=== PATIENT | male | born 1965 | race Caucasian/White ===

== ENCOUNTER 2020-02-22 13:40 | Emergency (ER) | payer OTHER ==
[~2020-02-22] VITALS: Ht 175.3 cm; Wt 92.7 kg
[2020-02-22 14:46] LABS: BASO # 0.1 10^3/uL (0.0-0.2); BASO % 0.7 % (0.0-1.0); EOS # 0.1 10^3/uL (0.0-0.5); HEMATOCRIT 48.4 % (42.0-52.0); LYMPH # 2.7 10^3/uL (1.5-5.0); LYMPH % 33.3 % (24.0-44.0); MEAN CORPUSCULAR HEMOGLOBIN 29.7 pg (27.0-33.0); MEAN CORPUSCULAR HGB CONC 33.1 g/dl (32.0-36.5); MONO # 0.5 10^3/uL (0.0-0.8); MONO % 6.4 % (0.0-5.0); NEUTROPHILS # 4.7 10^3/uL (1.5-8.5); NEUTROPHILS % 58.2 % (36.0-66.0); PLATELET COUNT, AUTOMATED 259 10^3/uL (150-450); RED BLOOD COUNT 5.38 10^6/uL (4.30-6.10); WHITE BLOOD COUNT 8.1 10^3/uL (4.0-10.0)
--- NOTE | 2020-02-22 14:54 | REP ---
INDICATION: CHEST PAIN. COMPARISON: Comparison chest x-ray is from March 24, 2014.. TECHNIQUE: Sitting portable AP chest radiograph. FINDINGS: Monitoring electrodes overlie the chest. The lungs are well inflated and clear. Heart size is normal. Pulmonary vasculature is not increased. No significant bony abnormality is seen. IMPRESSION: No active disease. <Electronically signed by Alphonse Malave > 02/22/20 [id number]
[2020-02-22 15:39] LABS: ALBUMIN 3.8 GM/DL (3.2-5.2); ALT/SGPT 45 U/L (12-78); BILIRUBIN,DIRECT 0.1 MG/DL (0.0-0.2); BILIRUBIN,TOTAL 0.3 MG/DL (0.2-1.0); BLOOD UREA NITROGEN 21 MG/DL (7-18); CALCIUM LEVEL 9.4 MG/DL (8.5-10.1); CARBON DIOXIDE LEVEL 27 MEQ/L (21-32); CHLORIDE LEVEL 108 MEQ/L (98-107); CK-MB VALUE MASS 1.8 NG/ML (<3.6); CPK CREATINE PHOSPHOKINASE 84 U/L (39-308); GLOMERULAR FILTRATION RATE > 60.0 (>56); GLUCOSE, FASTING 97 MG/DL (70-100); LIPASE 133 U/L (73-393); MB/CK RELATIVE INDEX 2.14 (< OR =4); POTASSIUM SERUM 4.5 MEQ/L (3.5-5.1); SODIUM LEVEL 139 MEQ/L (136-145); TOTAL PROTEIN 7.7 GM/DL (6.4-8.2); TROPONIN I < 0.02 NG/ML (< 0.10)
[2020-02-22 18:32] LABS: CK-MB VALUE MASS 1.6 NG/ML (<3.6); CPK CREATINE PHOSPHOKINASE 66 U/L (39-308); MB/CK RELATIVE INDEX 2.42 (< OR =4); TROPONIN I < 0.02 NG/ML (< 0.10)
[2020-02-22 19:05] VITALS: BP 155/97
--- NOTE | 2020-02-23 00:43 | ECGEPIP ---
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
--- NOTE | 2020-02-23 00:49 | ECGEPIP ---
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
== END 2020-02-22 19:10 | disposition home or self-care (01) ==
LOC: M ED 13:40
DX: R07.89 Other chest pain (principal); I44.0 Atrioventricular block, first degree; I45.10 Unspecified right bundle-branch block

== ENCOUNTER 2020-12-02 18:46 | Emergency (ER) | payer OTHER ==
[~2020-12-02] VITALS: Ht 175.3 cm; Wt 90.9 kg
[2020-12-02] MEDS ORDERED: NS 500 ML IV ONE (19:05)
[2020-12-02] MEDS ORDERED: methylPREDNISolone 125MG 2ML VIAL IV ONE (19:05)
[2020-12-02] MEDS: COMBIVENT RESPIMAT 100-20MCG INHALER 4GM INH SCH ×3 (19:25→20:45)
[2020-12-02 20:02] LABS: BASO % 0.2 % (0.0-1.0); HEMATOCRIT 44.5 % (42.0-52.0); HEMOGLOBIN 15.2 g/dl (13.5-17.5); MEAN CORPUSCULAR HEMOGLOBIN 30.7 pg (27.0-33.0); MEAN CORPUSCULAR HGB CONC 34.2 g/dl (32.0-36.5); MEAN CORPUSCULAR VOLUME 89.9 fl (80.0-96.0); MONO # 0.3 10^3/uL (0.0-0.8); MONO % 4.8 % (2.0-8.0); NEUTROPHILS # 4.7 10^3/uL (1.5-8.5); NEUTROPHILS % 78.5 % (36.0-66.0); PLATELET COUNT, AUTOMATED 180 10^3/uL (150-450); RED BLOOD COUNT 4.95 10^6/uL (4.30-6.10)
--- NOTE | 2020-12-02 20:07 | REP ---
INDICATION: ro covid. COMPARISON: 02/22/2020 also portable TECHNIQUE: Portable FINDINGS: The technique utilized in obtaining the radiograph has magnified the cardiac silhouette and attenuated the interstitial markings. The cardiomediastinal silhouette is stable. The lung olson are hypoexpanded. Bibasilar curvilinear densities have developed. The pleural angles are sharp. IMPRESSION: Bibasilar platelike subsegmental atelectatic change. <Electronically signed by Hernan Riley > 12/02/202002
[2020-12-02 20:13] LABS: INR 1.02; PROTHROMBIN TIME 13.8 SECONDS (12.7-14.5)
[2020-12-02 20:14] LABS: PARTIAL THROMBOPLASTIN TIME 39.8 SECONDS (25.9-37.0)
[2020-12-02 20:17] LABS: D-DIMER QUANT 897.41 ng/ml (<500)
[2020-12-02 20:32] LABS: ALT/SGPT 48 U/L (12-78); BILIRUBIN,TOTAL 0.5 MG/DL (0.2-1.0); BLOOD UREA NITROGEN 17 MG/DL (7-18); C REACTIVE PROTEIN QUANTITATIV 8.18 MG/DL (0.00-0.30); CALCIUM LEVEL 8.3 MG/DL (8.5-10.1); CARBON DIOXIDE LEVEL 25 MEQ/L (21-32); CHLORIDE LEVEL 105 MEQ/L (98-107); CPK CREATINE PHOSPHOKINASE 398 U/L (39-308); CREATININE FOR GFR 1.16 MG/DL (0.70-1.30); FERRITIN 811 NG/ML (26-388); GLOMERULAR FILTRATION RATE > 60.0 (>56); GLUCOSE, FASTING 124 MG/DL (70-100); LDH LACTATE DEHYDROGENASE 267 U/L (87-241); MB/CK RELATIVE INDEX 0.75 (< OR =4); POTASSIUM SERUM 3.7 MEQ/L (3.5-5.1); SODIUM LEVEL 140 MEQ/L (136-145); TOTAL PROTEIN 6.6 GM/DL (6.4-8.2); TROPONIN I < 0.02 NG/ML (< 0.10)
[2020-12-02] MEDS ORDERED: ISOVUE-370 76% 100ML VIAL As Ordered ONE (20:58)
--- NOTE | 2020-12-02 21:48 | REPVR ---
PROCEDURE INFORMATION: Exam: CTA Chest With Contrast Exam date and time: 12/02/2020 9:17 PM Age: 55 years old Clinical indication: Other: SOB, chest pain, covid pos, R/O pe TECHNIQUE: Imaging protocol: Computed tomographic angiography of the chest with contrast. 3D rendering (Not supervised by radiologist): MIP and/or 3D reconstructed images were created by the technologist. Radiation optimization: All CT scans at this facility use at least one of these dose optimization techniques: automated exposure control; mA and/or kV adjustment per patient size (includes targeted exams where dose is matched to clinical indication); or iterative reconstruction. Contrast material: ISOVUE 370; Contrast volume: 75 ml; Contrast route: INTRAVENOUS (IV); COMPARISON: CR Chest, 1 view 12/02/2020 7:15 PM FINDINGS: Pulmonary arteries: There are no pulmonary emboli. Aorta: There is no aortic dissection or aneurysm. Lungs: Bilateral solid and semi-solid pulmonary parenchymal infiltrates located predominantly peripherally extending to the pleural surfaces. Findings consistent with multifocal viral pneumonitis (organizing type) and known Covid diagnosis. Pleural spaces: Unremarkable. No pneumothorax. No pleural effusion. Heart: Unremarkable. No cardiomegaly. No pericardial effusion. Lymph nodes: Unremarkable. No enlarged lymph nodes. Bones/joints: Unremarkable. No acute fracture. Soft tissues: Unremarkable. IMPRESSION: 1. Bilateral solid and semi-solid pulmonary parenchymal infiltrates located predominantly peripherally extending to the pleural surfaces. Findings consistent with multifocal viral pneumonitis (organizing type) and known Covid diagnosis. 2. There is no aortic dissection or aneurysm. 3. There are no pulmonary emboli. Electronically signed by: Addy Jerome On 12/02/2020 21:48:22 PM
[2020-12-03 01:00] VITALS: BP 107/60
[2020-12-03] MEDS ORDERED: ACET-907 PO (02:12)
[2020-12-03] MEDS ORDERED: [UNRECOGNIZED DRUG - CODE] PO (02:12)
== END 2020-12-03 01:58 | disposition home or self-care (01) ==
LOC: M ED 18:46 → EDBD 18:46 → M ED 12-03 01:58
DX: J16.8 Pneumonia due to other specified infectious organisms (principal); U07.1 COVID-19
CPT/HCPCS: 71045; 71275; 80053; 82550; 82553; 82728; 82803; 83605; 83615; 83735; 84145; 85025; 85379; 85384; 85610; 85730; 86140; 87040; 87798; 96361; 96374; 99285; J2930; Q9967

== ENCOUNTER 2020-12-02 22:50 | Outpatient (CLI) | payer OTHER ==
[2020-12-02] MEDS ORDERED: ALBUTEROL SULFATE 2.5 MG/0.5 ML INH NEB SOLN INH PRN (23:35)
[2020-12-02] MEDS ORDERED: NS 1,000 ML IV SCH (23:35)
[2020-12-02] MEDS ORDERED: ACETAMINOPHEN TAB 650MG DOSE (2X325MG) PO PRN (23:35)
[2020-12-02] MEDS ORDERED: methylPREDNISolone 125MG 2ML VIAL IV PRN (23:35)
[2020-12-02] MEDS ORDERED: diphenhydrAMINE 50MG/ML VIAL (J1200) IV PRN (23:35)
[2020-12-02] MEDS ORDERED: EPINEPHrine INJ 1 MG/ML 1ML AMP IM PRN (23:35)
[2020-12-02] MEDS ORDERED: ALBUTEROL 90 MCG/ACT 8GM HFA INHALER INH PRN (23:35)
[2020-12-03 01:53] VITALS: BP 122/77
[2020-12-03] MEDS ORDERED: ACET-907 PO (02:12)
[2020-12-03] MEDS ORDERED: [UNRECOGNIZED DRUG - CODE] PO (02:12)
[2020-12-03] MEDS ORDERED: HOME MED LIST COMPLETE! XX SCH (02:15)
[2020-12-03] MEDS ORDERED: methylPREDNISolone 125MG 2ML VIAL IV ONE (02:30)
[2020-12-03] MEDS ORDERED: diphenhydrAMINE 50MG/ML VIAL (J1200) IV ONE (02:30)
[2020-12-03 02:59] VITALS: BP 116/69
[2020-12-03 03:00] VITALS: BP 116/69
[2020-12-03] MEDS ORDERED: CASIRIVIMAB/IMDEVIMAB 1,200 MG in NS 250 ML IV ONE (03:00)
[2020-12-03 03:45] VITALS: BP_SYST 105; BP_SYST 116; BP_DIAS 66; BP_DIAS 69
[2020-12-03 04:25] VITALS: BP 107/66
[2020-12-03 05:32] VITALS: BP 133/80
== END 2020-12-03 05:40 ==
LOC: M OPCLI4 22:50
PROVIDERS: ATTEND Internal Medicine
DX: U07.1 COVID-19 (principal)
CPT/HCPCS: 96375; J1200; J2930; M0243

== ENCOUNTER → 2021-01-23 | Outpatient (CLI) | payer OTHER ==
[~2021-01-23] MED LIST: ACET-907 PO; [UNRECOGNIZED DRUG - CODE] PO
--- NOTE | 2021-01-23 10:13 | REP ---
INDICATION: NODULE IN RIGHT SCROTUM. COMPARISON: None. TECHNIQUE: Real-time sonographic evaluation of the testicles with Doppler FINDINGS: The right testicle measures 4.6 x 2 x 2.6 cm and the left testicle measures 4.3 x 2 x 2.8 cm. The testicular parenchymal echo pattern and vascular pattern is within normal limits. The right testicular RI is 0.62 on the left is 0.63. There is no evidence of a hydrocele or varicocele. There are numerous anechoic structures seen throughout each epididymis particularly in the epididymal head region ranging in size from a mm to 13 mm. IMPRESSION: Bilateral spermatoceles. <Electronically signed by Hernan Riley > 01/23/21 [id number]
== END ==
LOC: M RAD 08:11
PROVIDERS: ATTEND Internal Medicine
DX: N50.3 Cyst of epididymis (principal); N43.40 Spermatocele of epididymis, unspecified

== ENCOUNTER → 2023-05-08 | Outpatient (REF) | payer OTHER ==
[2023-05-08 17:01] LABS: RSV AMPLIFICATION NEGATIVE (NEGATIVE)
== END ==
LOC: M LAB REF 15:59
PROVIDERS: ATTEND Internal Medicine
DX: R05.9 Cough, unspecified (principal); R06.02 Shortness of breath

== ENCOUNTER → 2023-05-23 | Outpatient (CLI) | payer OTHER | LOC: M PLAIMG 07:42 | PROVIDERS: ATTEND Internal Medicine | DX: R06.02 Shortness of breath (principal) ==

== ENCOUNTER → 2025-01-01 | Outpatient (CLI) | payer OTHER ==
[~2025-01-01] MED LIST changes: +[UNRECOGNIZED DRUG - CODE] PO; -[UNRECOGNIZED DRUG - CODE] PO
== END ==
LOC: M PLAIMG 07:02
PROVIDERS: ATTEND Physician Assistant Surgical
DX: M25.774 Osteophyte, right foot (principal)